=== PATIENT | female | born 1965 | race Caucasian/White ===

== ENCOUNTER → 2018-07-12 10:03 | Outpatient (CLI) | payer OTHER, SELFPAY ==
--- NOTE | 2018-07-12 | DI.RAD.S_ITS ---
PROCEDURE: XR KUB INDICATIONS: KIDNEY STONES TECHNIQUE: One view of the abdomen acquired. COMPARISON: CT abdomen and pelvis dated 07/06/18. FINDINGS: Surgical changes and devices: An intrauterine device projects over the midline lower pelvis. Bowel: Bowel gas pattern is normal. Soft tissues: There is a 10 mm calculus projecting lateral to the left side of the lumbar spine at the level of L3-4 correlating with previously seen left ureteral stone. It demonstrates no significant change in positioning when accounting for differences in imaging modality. The punctate right nephrolith is not visualized radiographically. No other suspicious abdominal calcifications. Visualized solid organ contours appear normal in size. Bones: No suspicious bony lesions. IMPRESSION: 1. The left mid ureteral stone remains unchanged in positioning. It measures approximately 10 mm craniocaudal dimension. 2. Otherwise, no acute radiographic abnormalities. Dictated by: Delgado Tracy M.D. on 07/12/2018 at 17:26 Approved by: Delgado Tracy M.D. on 07/12/2018 at 17:30
== END ==
PROVIDERS: PCP Family Medicine; Visit Provider Specialist
DX: N20.1 Calculus of ureter (principal)
CPT/HCPCS: 74018

== ENCOUNTER → 2018-07-23 11:12 | Outpatient (CLI) | payer OTHER, SELFPAY ==
--- NOTE | 2018-07-23 | DI.RAD.S_ITS ---
PROCEDURE: XR KUB INDICATIONS: Calculus of left kidney TECHNIQUE: One view of the abdomen acquired. COMPARISON: Outside Film, CT, CT KUB, 07/06/2018, 17:36. [facility], CR, XR KUB, 07/12/2018, 10:14. FINDINGS: Surgical changes and devices: Left nephroureteral stent is visible. IUD is present. Bowel: Bowel gas pattern is normal. Soft tissues: There are at least 3 small calcifications projecting over the lower pole of the left kidney ranging in size from 2 mm to 6 mm. Proximal left ureteral calcification is no longer visible.. Visualized solid organ contours appear normal in size. Bones: No suspicious bony lesions. IMPRESSION: 1. Probable left lower pole intrarenal calcifications. 2. Interval resolution of left proximal ureteral calcification. 3. Left nephroureteral stent in expected location. Dictated by: Kailee Urias M.D. on 07/23/2018 at 12:55 Approved by: Kailee Urias M.D. on 07/23/2018 at 12:57
== END ==
PROVIDERS: PCP Family Medicine; Visit Provider Specialist
DX: N20.0 Calculus of kidney (principal); Z96.0 Presence of urogenital implants
CPT/HCPCS: 74018

== ENCOUNTER → 2018-09-11 09:23 | Outpatient (CLI) | payer OTHER, SELFPAY ==
--- NOTE | 2018-09-11 | DI.RAD.S_ITS ---
PROCEDURE: XR KUB INDICATIONS: KIDNEY STONES TECHNIQUE: One view of the abdomen acquired. COMPARISON: [facility], CR, XR KUB, 07/23/2018, 11:27. FINDINGS: Surgical changes and devices: None. Bowel: Bowel gas pattern is normal. Soft tissues: Left ureteral stent is removed. Previously seen left inferior pole renal calcifications are no longer visualized. Visualized solid organ contours appear normal in size. There is an IUD in pelvis, presumably in the uterus. Bones: No suspicious bony lesions. IMPRESSION: 1. Removal of the left ureteral stent. Previously seen left inferior pole renal calcifications are no longer visualized. Dictated by: Lorene Vences M.D. on 09/11/2018 at 13:35 Approved by: Lorene Vences M.D. on 09/11/2018 at 13:54
[2018-09-11 11:31] LABS: Calcium 9.8 mg/dL (8.4-10.2); Uric Acid 5.4 mg/dL (2.5-6.2)
[2018-09-13 13:47] LABS: Parathyroid Hormone Int 58 pg/mL (14-64)
== END ==
PROVIDERS: PCP Family Medicine; Visit Provider Specialist
DX: N20.0 Calculus of kidney (principal)
CPT/HCPCS: 36415; 74018; 82310; 83970; 84550

== ENCOUNTER → 2018-10-28 13:08 | Outpatient (CLI) | payer OTHER, SELFPAY ==
--- NOTE | 2018-10-28 | DI.RAD.S_ITS ---
PROCEDURE: XR KUB INDICATIONS: kidney stones TECHNIQUE: One view of the abdomen acquired. COMPARISON: [facility], CR, XR KUB, 09/11/2018, 9:28. FINDINGS: Surgical changes and devices: An intrauterine contraceptive device is evident overlying the midline pelvis. Bowel: Bowel gas pattern is normal. No air-filled distended small bowel loops are evident demonstrating air-fluid levels. Soft tissues: No suspicious abdominal calcifications. Visualized solid organ contours appear normal in size. Bones: No suspicious bony lesions. Degenerative changes of the lower lumbar spine are present. IMPRESSION: No definite renal calculi are appreciated. Dictated by: Tee Bowie M.D. on 10/28/2018 at 12:32 Approved by: Tee Bowie M.D. on 10/28/2018 at 12:34
== END ==
PROVIDERS: PCP Family Medicine; Visit Provider Specialist
DX: N20.0 Calculus of kidney (principal); M47.816 Spondylosis without myelopathy or radiculopathy, lumbar region
CPT/HCPCS: 74018

== ENCOUNTER 2019-08-25 00:48 | Emergency (ER) | payer OTHER, SELFPAY ==
[2019-08-25 01:04] VITALS: BP 160/75; PULSE 75; RESP 18; TEMP 36.3; O2SAT 95; BMI 37.5
[2019-08-25 01:51] LABS: Add Manual Diff / Slide Review NO; Basophils Absolute Auto 100 /uL (0-100); Basophils Percent Auto 0.6 % (0-2); Eosinophils Absolute Auto 200 /uL (0-450); Eosinophils Percent Auto 2.2 % (2-4); Hematocrit 42.1 % (36-46); Hemoglobin 14.2 g/dL (12.0-16.0); Lymphocytes Absolute Auto 2100 /uL (1100-4500); Lymphocytes Percent Auto 23.5 % (25-40); Mean Corpuscular HGB Conc 33.7 % (30-36); Mean Corpuscular Hemoglobin 28.1 PG (26-34); Mean Corpuscular Volume 83.2 fL (80-100); Monocytes Absolute Auto 800 /uL (0-900); Monocytes Percent Auto 9.2 % (3-14); Neutrophils Absolute Auto 5900 /uL (1500-7000); Neutrophils Percent Auto 64.5 % (50-75); Platelet Count 272 X10^3/uL (150-400); Red Blood Cell Count 5.06 X10^6/uL (4.0-5.2); Red Cell Distribution Width 13.6 % (11.6-14.8); White Blood Cell Count 9.1 X10^3/uL (4.5-11.0)
--- NOTE | 2019-08-25 01:52 | ED.FEMALEGU ---
HPI - Female Genitourinary General Chief complaint: Urogenital-Female Stated complaint: right side kidney pain Time Seen by Provider: 08/25/19 00:50 Source: patient Mode of arrival: Ambulatory Limitations: no limitations History of Present Illness HPI Narrative: 54F non smoker with history of kidney stones presents with her and a chief complaint of a relatively sudden onset right flank pain that started a few hours prior to arrival. She has taken 600 mg of ibuprofen with minimal relief. She states that wraps around her flank small bit him overall her symptoms are very reminiscent of prior kidney stones. She denies any fever or chills. She has no nausea or vomiting. She denies dysuria, frequency or urgency. She states that her pain is largely could consistent but has episodes of unprovoked worsening Onset (ago): hour(s) Female Urogenital Radiation: R Flank Severity: severe Quality: Aching and Sharp Duration: constant Relieving factors: none Exacerbating factors: other (Laying flat) Urinary symptoms: Flank Pain Patient : No Related Data Home Medications Medication Instructions Recorded Confirmed bupropion HCl [Wellbutrin XL] 150 mg PO BID #0 09/16/16 cholecalciferol (vitamin D3) 5,000 u PO QDAY #0 09/16/16 [Vitamin D3] citalopram [Celexa] 40 mg PO QDAY #0 09/16/16 hydrocodone-acetaminophen 1 - 2 tab PO Q6HP PRN #0 09/16/16 melatonin 3 mg PO HS #0 09/16/16 Previous Rx's Medication Instructions Recorded hydrocodone-acetaminophen 1 tab PO Q4-6H PRN #20 tab 08/25/19 ketorolac 10 mg PO Q6H PRN #14 tab 08/25/19 ondansetron 4 mg PO TID-QID PRN #10 tab 08/25/19 tamsulosin [Flomax] 0.4 mg PO DAILY #10 cap 08/25/19 Allergies Allergy/AdvReac Type Severity Reaction Status Date / Time No Known Allergies Allergy Uncoded 06/28/17 12:45 Review of Systems Review of Systems ROS Unobtainable: All systems reviewed & are unremarkable except as noted in HPI and below Constitutional Constitutional: Denies chills, Denies fatigue, Denies fever(s), Denies frequent falls, Denies lethargy and Denies weakness Eyes Eyes: Denies change in vision, Denies eye discharge, Denies irritation and Denies loss of vision ENT Ears, Nose, Mouth, and Throat: Denies change in voice, Denies dizziness, Denies neck pain, Denies sore throat and Denies throat swelling Cardiovascular Cardiovascular: Denies chest pain, Denies irregular heart rhythm, Denies lightheadedness, Denies palpitations, Denies dyspnea, Denies dyspnea on exertion and Denies orthopnea Respiratory Respiratory: Denies cough, Denies dyspnea, Denies dyspnea on exertion and Denies wheezing Gastrointestinal Gastrointestinal: Denies abdominal pain, Denies change in bowel habits, Denies diarrhea, Denies nausea and Denies vomiting Genitourinary Genitourinary: Denies hematuria and Denies dysuria Genitourinary: Denies hematuria and Denies dysuria Musculoskeletal Musculoskeletal: Denies neck pain and Denies numbness Integumentary/Breasts Skin/Breast: Denies pruritus, Denies erythema, Denies rash and Denies wounds Neurologic Neurologic: Denies behavioral changes, Denies confusion, Denies dizziness, Denies frequent falls, Denies loss of vision, Denies numbness and Denies weakness Psychiatric Psychiatric: Denies anxiety, Denies behavioral changes, Denies confusion, Denies depression, Denies homicidal ideation and Denies suicidal ideation Endocrine Endocrine: Denies fatigue, Denies flushing and Denies palpitations Hematologic/Lymphatic Hematologic/Lymphatic: Denies easy bruising Allergic/Immunologic Allergic/Immunologic: Denies urticaria, Denies throat swelling and Denies wheezing Patient History alcohol intake frequency: 0-2 drinks per day Substance Use Type: does not use Exam Narrative Exam Narrative: GENERAL: [54] year old patient appears stated age. Well-nourished, well-developed patient, in mild distress. HEAD: Atraumatic. Normocephalic. EYES: Pupils equal round and reactive. Extraocular motions intact. No scleral icterus. No injection or drainage. ENT: Nose without bleeding, purulent drainage. Throat without erythema, tonsillar hypertrophy or exudate. Airway patent. NECK: Trachea midline. Non tender CARDIOVASCULAR: Regular rate and rhythm without murmurs, gallops, or rubs. RESPIRATORY: Clear to auscultation. Breath sounds equal bilaterally. No wheezes, rales, or rhonchi. GASTROINTESTINAL: Abdomen soft, non-tender, nondistended. EXTREMITIES: No edema or joint tenderness. BACK: Nontender without deformity or crepitance. No flank tenderness. NEURO: AOx3. SKIN: No rash or erythema of visible areas Initial Vital Signs Initial Vital Signs: Vital Signs Temperature 97.3 F L 08/25/19 01:04 Pulse Rate 75 08/25/19 01:04 Respiratory Rate 18 08/25/19 01:04 Blood Pressure 160/75 H 08/25/19 01:04 Pulse Oximetry 95 08/25/19 01:04 Course Course Course Narrative: Minimal improvement with toradol/lidocaine drip. Dilaudid ordered. given lack of lab abnormalities, and no sign of infection, along with improvement of symptoms with the above no imaging ordered as it is though to be unlikely to change the outcome. Orders Ordered: ED Orders 08/25/19 01:05 Urinalysis and Microscopic Stat 08/25/19 01:40 Complete Blood Count AUTO DIFF Stat Comprehensive Metabolic Panel Stat Discontinued Medications Hydrocodone Bitart/Acetaminophen (Vicodin 5/325 Prepack) 1 bottle MISC SEEINSTR ONE Stop: 08/25/19 03:48 Hydromorphone HCl (Dilaudid) 1 mg IV NOW ONE Stop: 08/25/19 02:17 Last Admin: 08/25/19 02:28 Dose: 1 mg Documented by: PHYLLIS Sodium Chloride (Normal Saline 0.9%) 1,000 mls @ 1,000 mls/hr IV BOLUS ONE Stop: 08/25/19 02:33 Last Infusion: 08/25/19 03:47 Dose: 0 mls/hr Documented by: Admin: 08/25/19 01:56 Dose: 1,000 mls/hr Documented by: PHYLLIS Lidocaine HCl 8.2 ml/ Sodium (Chloride) 58.2 mls @ 349.2 mls/hr IV NOW ONE Stop: 08/25/19 01:35 Last Infusion: 08/25/19 02:28 Dose: 0 mls/hr Documented by: Admin: 08/25/19 01:57 Dose: 349.2 mls/hr Documented by: PHYLLIS Ketorolac Tromethamine (Toradol) 15 mg IV NOW ONE Stop: 08/25/19 01:35 Last Admin: 08/25/19 01:56 Dose: 15 mg Documented by: PHYLLIS Vital Signs Vital signs: Vital Signs - 8 hr 08/25/19 01:04 08/25/19 03:50 Temperature 97.3 F L Pulse Rate 75 61 Respiratory Rate 18 15 Blood Pressure 160/75 H Blood Pressure [Left Arm] 160/75 H Pulse Oximetry 95 94 MDM - Female Genitourinary Lab Data Result diagrams: 08/25/19 01:40 08/25/19 01:40 Labs: Lab Results 08/25/19 08/25/19 08/25/19 Range/Units 01:05 01:40 01:40 WBC 9.1 (4.5-11.0) X10^3/uL RBC 5.06 (4.0-5.2) X10^6/uL Hgb 14.2 (12.0-16.0) g/dL Hct 42.1 (36-46) % MCV 83.2 (80-100) fL MCH 28.1 (26-34) PG MCHC 33.7 (30-36) % RDW 13.6 (11.6-14.8) % Plt Count 272 (150-400) X10^3/uL Neut % (Auto) 64.5 (50-75) % Lymph % (Auto) 23.5 L (25-40) % [place] % (Auto) 9.2 (3-14) % Eos % (Auto) 2.2 (2-4) % Baso % (Auto) 0.6 (0-2) % Neut # (Auto) 5900 (8435-7204) /uL Lymph # (Auto) 2100 (6389-7647) /uL [place] # (Auto) 800 (0-900) /uL Eos # (Auto) 200 (0-450) /uL Baso # (Auto) 100 (0-100) /uL Sodium 138 (137-145) mmol/L Potassium 3.6 (3.4-5.1) mmol/L Chloride 104 (98-107) mmol/L Carbon Dioxide 26 (22-32) mmol/L BUN 21 H (7-17) mg/dL Creatinine 0.87 (0.52-1.04) mg/dL Estimated GFR > 60.0 (>60) mL/min BUN/Creatinine Ratio 24.1 H (6-22) Glucose 123 H (70-100) mg/dL Calcium 10.2 (8.4-10.2) mg/dL Total Bilirubin 0.4 (0.2-1.3) mg/dL AST 44 H (14-36) IU/L ALT 34 (<35) IU/L Alkaline Phosphatase 59 (38-126) U/L Total Protein 8.0 (6.3-8.2) g/dL Albumin 4.4 (3.5-5.0) g/dL Globulin 3.6 (1.7-4.1) g/dL Albumin/Globulin Ratio 1.2 (1.0-2.8) Urine Color Yellow Urine Appearance Clear Urine pH 5.0 (4.5-8.0) Ur Specific [place] >=1.030 H (1.000-1.035) Urine Protein 1+ H (Negative) Urine Glucose (UA) Negative (Negative) g/dL Urine Ketones Negative (NEGATIVE) Urine Occult Blood 3+ H (Negative) Urine Nitrate Negative (Negative) Urine Bilirubin Negative (NEGATIVE) Urine Urobilinogen 0.2 (0.2) E.U./dL Ur Leukocyte Esterase Negative (NEGATIVE) Urine RBC 1-5/hpf (0-5/HPF) Urine WBC 1-5/hpf (0-5/HPF) Ur Squamous Epith Cells 1-5 /hpf (0-5/HPF) Calcium Oxalate Crystal Occasional H Urine Bacteria Few (2-10) H (None) Ur Culture Indicated? Cult not indicated Micro UA Comment * Discharge Plan Departure Patient Disposition: Home Clinical Impression: Kidney stone Instructions: DI for Kidney Stones Activity Restrictions/Additional Instructions: *You have been diagnosed with [right flank pain from kidney stone] *What to do: *Take medications as directed *Follow up with your urologist in 2-3 days, call for an appointment. Let them know you were seen in the Emergency Department and that we ask that you be seen in follow up *Return to ER if you should have any new, worsening or concerning symptoms, such as [ ] Prescriptions: New hydrocodone-acetaminophen 5-325 mg tablet 1 tab PO Q4-6H PRN (Reason: pain) Qty: 20 RF: 0 ketorolac 10 mg tablet 10 mg PO Q6H PRN (Reason: pain) Qty: 14 RF: 0 tamsulosin [Flomax] 0.4 mg capsule 0.4 mg PO DAILY Qty: 10 RF: 0 ondansetron 4 mg tablet,disintegrating 4 mg PO TID-QID PRN (Reason: nausea and vomiting) Qty: 10 RF: 0 No Action citalopram [Celexa] 40 MG tablet 40 mg PO QDAY Qty: 0 RF: 0 hydrocodone-acetaminophen 5 MG/325 MG tablet 1 - 2 tab PO Q6HP PRNQty: 0 RF: 0 bupropion HCl [Wellbutrin XL] 150 MG tablet extended release 24 hr 150 mg PO BID Qty: 0 RF: 0 melatonin 3 MG tablet 3 mg PO HS Qty: 0 RF: 0 cholecalciferol (vitamin D3) [Vitamin D3] 1,000 UNIT tablet 5,000 u PO QDAY Qty: 0 RF: 0 Referrals: Johnathan Purdy MD [Physician] - Heriberto Grady DO [Primary Care Provider] -
[2019-08-25 01:55] LABS: Appearance Urine UA CLEAR; Bilirubin Urine UA NEGATIVE (NEGATIVE); Color Urine UA YELLOW; Glucose Urine UA NEGATIVE (Negative); Ketones Urine UA NEGATIVE (NEGATIVE); Leukocyte Esterase Urine UA NEGATIVE (NEGATIVE); Nitrite Urine UA NEGATIVE (Negative); Occult Blood Urine UA 3+ (Negative); Protein Urine UA 1+ (Negative); Specific Gravity Urine UA >=1.030 (1.000-1.035); Urobilinogen Urine UA 0.2 E.U./dL (0.2)
[2019-08-25] MEDS: SODIUM CHLORIDE 0.9% 1,000 ML 1000 ML IV (01:56)
[2019-08-25] MEDS: KETOROLAC 60 MG/2 ML VIAL 15 MG IV (01:56)
[2019-08-25] MEDS: LIDOCAINE 2% IV (01:57)
[2019-08-25] MEDS: SODIUM CHLORIDE 0.9% IV (01:57)
[2019-08-25 02:09] LABS: Alanine Aminotransferase 34 IU/L (<35); Albumin 4.4 g/dL (3.5-5.0); Albumin Globulin Ratio 1.2 (1.0-2.8); Alkaline Phosphatase 59 U/L (38-126); Aspartate Aminotransferase 44 IU/L (14-36); BUN Creatinine Ratio 24.1 (6-22); Bilirubin Total 0.4 mg/dL (0.2-1.3); Blood Urea Nitrogen 21 mg/dL (7-17); Calcium 10.2 mg/dL (8.4-10.2); Carbon Dioxide 26 mmol/L (22-32); Chloride 104 mmol/L (98-107); Estimated Glomerular Filt Rate > 60.0 mL/min (>60); Globulin 3.6 g/dL (1.7-4.1); Glucose 123 mg/dL (70-100); HEMOLYSIS < 15 (0-50); Potassium 3.6 mmol/L (3.4-5.1); Sodium 138 mmol/L (137-145)
[2019-08-25 02:10] LABS: Bacteria Urine Few (2-10); Calcium Oxalate Crystals Urine Occasional; RBC Urine 1-5/HPF (0-5/HPF); Squamous Epithelial Cell Urine 1-5 /HPF (0-5/HPF); WBC Urine 1-5/HPF (0-5/HPF)
[2019-08-25 02:12] LABS: Culture Indicated Urine Cult Not Indicated
[2019-08-25] MEDS: HYDROMORPHONE 1 MG INJ IV (02:28)
[2019-08-25 03:50] VITALS: BP 160/75; PULSE 61; RESP 15; O2SAT 94
[2019-08-25] MEDS: HYDROCODONE/ACET 5/325 PREPACK 1 BOTTLE MISC (03:57)
== END 2019-08-25 04:06 | disposition home or self-care (01) ==
PROVIDERS: Emergency Provider Emergency Medicine; PCP Family Medicine
DX: N20.0 Calculus of kidney (principal); Z87.442 Personal history of urinary calculi
CPT/HCPCS: 36415; 80053; 81001; 85025; 96365; 96375; 99284; J1170; J1885

== ENCOUNTER → 2019-08-26 12:29 | Outpatient (CLI) | payer OTHER, SELFPAY ==
--- NOTE | 2019-08-26 | DI.RAD.S_ITS ---
PROCEDURE: XR KUB INDICATIONS: Kidney stones TECHNIQUE: One view of the abdomen acquired. COMPARISON: [facility], CR, XR KUB, 10/28/2018, 13:13. FINDINGS: Surgical changes and devices: Intrauterine device projects over the mid pelvis. Bowel: Bowel gas pattern is normal. Soft tissues: No suspicious abdominal calcifications. Visualized solid organ contours appear normal in size. Bones: No suspicious bony lesions. IMPRESSION: No renal stones identified by plain film radiograph. Dictated by: Anjali Agosto MD, PhD on 08/26/2019 at 16:50 Approved by: Anjali Agosto MD, PhD on 08/26/2019 at 16:50
== END ==
PROVIDERS: PCP Family Medicine; Referring Provider Specialist; Visit Provider Specialist
DX: N20.0 Calculus of kidney (principal)
CPT/HCPCS: 74018

== ENCOUNTER → 2020-02-29 11:37 | Outpatient (CLI) | payer OTHER, SELFPAY ==
--- NOTE | 2020-02-29 12:11 | DI.RAD.S_ITS ---
PROCEDURE: XR KUB INDICATIONS: L flank pain TECHNIQUE: One view of the abdomen acquired. COMPARISON: Outside Film, CT, CT KUB, 07/06/2018, 17:36. Merged With [facility], CR, XR KUB, 08/26/2019, 11:40. Merged With [facility], CR, XR KUB, 10/28/2018, 13:13. FINDINGS: Surgical changes and devices: IUD in the pelvis. Bowel: Bowel gas pattern is normal. Soft tissues: No suspicious abdominal calcifications. Visualized solid organ contours appear normal in size. Bones: No suspicious bony lesions. IMPRESSION: No kidney stones identified by plain film. If clinically indicated consider CT KUB for further evaluation. Dictated by: Quinn Rhoades M.D. on 02/29/2020 at 11:41 Approved by: Quinn Rhoades M.D. on 02/29/2020 at 11:43
[2020-02-29 13:17] LABS: Add Manual Diff / Slide Review NO; Basophils Absolute Auto 100 /uL (0-100); Basophils Percent Auto 0.7 % (0-2); Eosinophils Absolute Auto 100 /uL (0-450); Hematocrit 44.6 % (36-46); Hemoglobin 15.1 g/dL (12.0-16.0); Lymphocytes Absolute Auto 2600 /uL (1100-4500); Lymphocytes Percent Auto 35.7 % (25-40); Mean Corpuscular HGB Conc 33.9 % (30-36); Mean Corpuscular Hemoglobin 28.3 PG (26-34); Mean Corpuscular Volume 83.5 fL (80-100); Monocytes Absolute Auto 600 /uL (0-900); Monocytes Percent Auto 8.3 % (3-14); Neutrophils Absolute Auto 3900 /uL (1500-7000); Neutrophils Percent Auto 53.3 % (50-75); Platelet Count 282 X10^3/uL (150-400); Red Blood Cell Count 5.34 X10^6/uL (4.0-5.2); Red Cell Distribution Width 13.3 % (11.6-14.8); White Blood Cell Count 7.3 X10^3/uL (4.5-11.0)
[2020-02-29 13:28] LABS: Alanine Aminotransferase 39 IU/L (<35); Albumin 4.6 g/dL (3.5-5.0); Albumin Globulin Ratio 1.2 (1.0-2.8); Alkaline Phosphatase 78 U/L (38-126); Aspartate Aminotransferase 49 IU/L (14-36); BUN Creatinine Ratio 18.1 (6-22); Bilirubin Total 0.8 mg/dL (0.2-1.3); Blood Urea Nitrogen 13 mg/dL (7-17); Calcium 9.5 mg/dL (8.4-10.2); Carbon Dioxide 28 mmol/L (22-32); Chloride 103 mmol/L (98-107); Estimated Glomerular Filt Rate > 60.0 mL/min (>60); Globulin 3.9 g/dL (1.7-4.1); Glucose 98 mg/dL (70-100); HEMOLYSIS 30 (0-50); Potassium 4.1 mmol/L (3.4-5.1); Sodium 140 mmol/L (137-145); Total Protein 8.5 g/dL (6.3-8.2)
== END ==
PROVIDERS: PCP Family Medicine; Referring Provider Nurse Practitioner; Visit Provider Nurse Practitioner
DX: R30.0 Dysuria (principal); R10.9 Unspecified abdominal pain
CPT/HCPCS: 36415; 74018; 80053; 85025; 87086

== ENCOUNTER → 2022-05-18 12:45 | Outpatient (CLI) | payer OTHER, SELFPAY ==
--- NOTE | 2022-05-18 13:37 | DI.MRI.S_ITS ---
PROCEDURE: MRFOOT LT WO CON INDICATIONS: Crushing injury of left foot, initial encounter TECHNIQUE: Noncontrast sagittal T1 spin echo and T2 fast spin echo with fat saturation, long-axis T1 spin echo and T2 fast spin echo with fat saturation, short-axis T1 spin echo and T2 fast spin echo with fat saturation through the forefoot. COMPARISON: [facility], CR, XR FOOT 3 VIEWS WEIGHT BEARING LEFT, 03/23/2022, 10:10. [facility], CR, XR FOOT 3 VIEWS WEIGHT BEARING LEFT, 05/11/2022, 9:28. FINDINGS: Image quality: Excellent. Bones and joints: No bone marrow contusions or metatarsal stress fractures. Osteoarthritic changes are noted involving midfoot and forefoot joints most notably at 1st MTP joint with joint space narrowing, subchondral sclerosis and cyst formation. Osteoarthritic changes also noted involving articulation between 1st metatarsal head and sesamoids. No suspicious bony lesions. Soft tissues: The visualized plantar foot muscles demonstrate normal signal and bulk. Visualized flexor and extensor tendons appear intact, without tenosynovitis. The distal insertions of the peroneus brevis and longus tendons appear intact. The principal Lisfranc ligament appears intact. No soft tissue ganglion cysts or bursal fluid collections. Sagittal images demonstrate no evidence for plantar plate tears. IMPRESSION: 1. Midfoot and forefoot joint osteoarthritis. No marrow edema. No fracture or dislocation. No suspicious bony lesions. 2. Extensor and flexor tendons are intact. Lisfranc ligament and joint is intact. Dictated by: Brian Baron M.D. on 05/18/2022 at 15:36 Approved by: Brian Baron M.D. on 05/18/2022 at 15:41
== END ==
PROVIDERS: PCP Family Medicine; Referring Provider Orthopaedic Surgery Foot and Ankle Surgery; Visit Provider Orthopaedic Surgery Foot and Ankle Surgery
DX: S97.82XA Crushing injury of left foot, initial encounter (principal); M19.072 Primary osteoarthritis, left ankle and foot; X58.XXXA Exposure to other specified factors, initial encounter
CPT/HCPCS: 73718

== ENCOUNTER 2024-04-19 10:08 | Emergency (ER) | payer OTHER, SELFPAY ==
[2024-04-19 10:09] VITALS: BP 128/62; PULSE 88; RESP 24; TEMP 36.6; O2SAT 99; BMI 35.5
[2024-04-19 10:14] VITALS: BP 128/62; PULSE 75; O2SAT 99
--- NOTE | 2024-04-19 10:15 | EKG_ITS ---
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
--- NOTE | 2024-04-19 10:16 | DI.RAD.S_ITS ---
PROCEDURE: XR CHEST 1V INDICATIONS: chest pain TECHNIQUE: One view of the chest was acquired. COMPARISON: None. FINDINGS: Surgical changes and devices: None. Lungs and pleura: Lungs are clear. No pleural effusions or pneumothorax. Mediastinum: Mediastinal contours appear normal. Heart size is normal. Bones and chest wall: No suspicious bony lesions. Overlying soft tissues appear unremarkable. IMPRESSION: No acute pulmonary process. Dictated by: Reta Thao M.D. on 04/19/2024 at 11:28 Approved by: Reta Thao M.D. on 04/19/2024 at 11:30
--- NOTE | 2024-04-19 10:17 | ED.CHESTPAIN ---
HPI - Chest Pain General Chief Complaint: Chest Pain Stated Complaint: Faint, Heavy chest , both arms hurt Time Seen by Provider: 04/19/24 10:17 History of Present Illness HPI narrative: 58-year-old female with past medical history of anxiety depression presents to the emergency department from home for evaluation of chest pressure as well as diffuse myalgias, states it has been ongoing persistent for the past week, states that approximately 1 month ago something similar like this happened was at [facility] states that at that time she was admitted had a normal stress test echo and was discharged home. She states that all these symptoms started approximately 1 month ago when she stopped taking her citalopram by herself, states that 1 week ago she started fluoxetine. She denies any trauma or falls, denies any difficulty breathing no fever chills nausea vomiting abdominal pain or any other GI/ symptoms at this time. She denies any known sick contacts no recent travel. Related Data Home Medications Medication Instructions Recorded Confirmed citalopram 40 mg tablet (Celexa) 40 mg PO QDAY ##0 09/16/16 02/29/20 hydrochlorothiazide 25 mg tablet 25 mg PO DAILY 02/29/20 02/29/20 potassium citrate PO 02/29/20 02/29/20 Previous Rx's Medication Instructions Recorded cyclobenzaprine 10 mg tablet 10 mg PO BEDTIME PRN muscle spasm 04/19/24 5 days #5 tabs Allergies Allergy/AdvReac Type Severity Reaction Status Date / Time No Known Drug Allergies Allergy Verified 04/19/24 10:17 Review of Systems Review of Systems Narrative: General: Denies fever, chills, weight loss HEENT: Denies headache, eye drainage, eye irritation, head trauma, sore throat, voice change Cardiovascular: Positive chest pain, denies palpitations, shortness of breath, tachycardia Respiratory: Denies any shortness of breath, cough, wheeze, stridor GI/: Denies any abdominal pain, nausea, vomiting, diarrhea, bright red blood per rectum, melanotic stools, urinary frequency, urinary retention, dysuria, hematuria MSK: Positive myalgias, Denies any joint pain, swelling Skin: Denies any rashes, lesions, discoloration Neuro: Denies any headache, lightheadedness, dizziness, fainting, weakness Psych: Denies SI/HI Patient History Medical History Renal calculi Social History Smoking Status: Never smoker Smoking Status: Never smoker alcohol intake frequency: 0-2 drinks per day Exam Narrative Exam Narrative: General: Cooperative, comfortable, well-developed, not in acute distress HEENT: Normocephalic, atraumatic, PERRLA, normal sclera, eyelids normal, Neck: Active full range of motion, atraumatic Chest: Normal to inspection, negative crepitus, no overlying erythema ecchymosis Respiratory: Normal respiratory effort, not in acute respiratory distress, clear to auscultation bilaterally negative cough, wheeze, tachypnea, rhonchi, rales Cardiology: Regular rate rhythm negative gallop, murmur, rubs GI/: Normal to inspection, soft, nonrigid, no tenderness to palpation, exam deferred MSK: Full range of active range of motion of all 4 extremities, atraumatic, bilateral upper lower extremities neurovascularly intact no tenderness to palpation of any bony prominences Skin: No rashes lesions noted Neuro: Alert awake oriented x3, moves all 4 extremities spontaneously, cranial nerves intact, able to answer all questions appropriately follows commands appropriately Psych: Cooperative, negative suicidal or homicidal ideations Initial Vital Signs Initial Vital Signs: Vital Signs Temperature 97.8 F 04/19/24 10:09 Pulse Rate 88 04/19/24 10:09 Respiratory Rate 24 04/19/24 10:09 Blood Pressure 128/62 04/19/24 10:09 Pulse Oximetry 99 04/19/24 10:09 Oxygen Delivery Method Room Air 04/19/24 10:09 Course Orders Ordered: ED Orders 04/19/24 10:16 XR chest 1V Stat EKG-12 Lead Stat 04/19/24 10:29 Covid-19 + FLU A/B + RSV - PCR Stat 04/19/24 10:35 Complete Blood Count AUTO DIFF Stat Comprehensive Metabolic Panel Stat Lipase Stat Magnesium Stat NT-proBNP (BNP-Adult 18+) Stat PTT Partial Thromboplastin Roberto Carlos Stat Prothrombin Time INR Stat Troponin & CK Cardiac Panel Stat Discontinued Medications Aspirin (Aspirin 81 Mg Chew Tab) 324 mg PO NOW ONE Stop: 04/19/24 10:17 Last Admin: 04/19/24 11:06 Dose: 243 mg Documented By: RB Cyclobenzaprine HCl (Cyclobenzaprine 10 Mg Tablet) 10 mg PO NOW ONE Stop: 04/19/24 11:21 Last Admin: 04/19/24 11:30 Dose: 10 mg Documented By: REBECCA Ketorolac Tromethamine (Ketorolac 30 Mg/Ml Vial) 15 mg IV NOW ONE Stop: 04/19/24 11:21 Last Admin: 04/19/24 11:30 Dose: 15 mg Documented By: REBECCA Vital Signs Vital signs: Vital Signs - 8 hr 04/19/24 10:09 04/19/24 10:14 04/19/24 10:14 Temperature 97.8 F Pulse Rate 88 75 Respiratory Rate 24 Blood Pressure 128/62 128/62 Pulse Oximetry 99 99 Oxygen Delivery Method Room Air 04/19/24 10:30 04/19/24 10:30 04/19/24 11:00 Temperature Pulse Rate 85 Respiratory Rate 23 Blood Pressure 127/69 123/56 L Pulse Oximetry 98 Oxygen Delivery Method 04/19/24 11:00 Temperature Pulse Rate 87 Respiratory Rate 19 Blood Pressure Pulse Oximetry 97 Oxygen Delivery Method MDM - Chest Pain Differential Diagnosis Differential diagnosis: Likely st elevation myocardial infarction, costochondritis, chest pain and other (Electrolyte abnormality, pneumonia) Lab Data 04/19/24 10:35 04/19/24 10:35 Labs: Lab Results 04/19/24 04/19/24 Range/Units 10:29 10:35 WBC 12.3 H (4.5-11.0) X10^3/uL RBC 4.77 (4.0-5.2) X10^6/uL Hgb 13.6 (12.0-16.0) g/dL Hct 40.5 (36-46) % MCV 85.0 (80-100) fL MCH 28.6 (26-34) PG MCHC 33.7 (30-36) % RDW 13.2 (11.6-14.8) % Plt Count 282 (150-400) X10^3/uL Neut % (Auto) 71.4 (50-75) % Lymph % (Auto) 19.4 L (25-40) % [place] % (Auto) 7.6 (3-14) % Eos % (Auto) 0.9 L (2-4) % Baso % (Auto) 0.7 (0-2) % Neut # (Auto) 8800 H (7774-1716) /uL Lymph # (Auto) 2400 (4857-3456) /uL [place] # (Auto) 900 (0-900) /uL Eos # (Auto) 100 (0-450) /uL Baso # (Auto) 100 (0-100) /uL PT 12.3 (9.4-12.5) SECONDS INR 1.1 (0.9-1.3) APTT 33 (25.1-36.5) SECONDS Sodium 142 (137-145) mmol/L Potassium 3.4 (3.4-5.1) mmol/L Chloride 105 (98-107) mmol/L Carbon Dioxide 29 (22-32) mmol/L BUN 19 H (7-17) mg/dL Creatinine 0.85 (0.52-1.04) mg/dL Estimated GFR > 60 (>60) mL/min BUN/Creatinine Ratio 22.4 H (6-22) Glucose 102 H (70-100) mg/dL Calcium 9.7 (8.4-10.2) mg/dL Magnesium 1.9 (1.6-2.3) mg/dL Total Bilirubin 0.7 (0.2-1.3) mg/dL AST 32 (14-36) IU/L ALT 27 (<35) IU/L Alkaline Phosphatase 66 (38-126) U/L Total Creatine Kinase 75 (30-135) U/L Troponin I < 0.012 (0.01-0.034) ng/mL NT-Pro-B Natriuret Pep 26 (<125) pg/mL Total Protein 7.7 (6.3-8.2) g/dL Albumin 4.4 (3.5-5.0) g/dL Globulin 3.3 (1.7-4.1) g/dL Albumin/Globulin Ratio 1.3 (1.0-2.8) Lipase 108 (23-300) U/L SARS-CoV-2 (PCR) Negative (Negative) Influenza A (RT-PCR) Flu a negative (NEGATIVE) Influenza B (RT-PCR) Flu b negative (NEGATIVE) RSV (PCR) Negative (Negative) Imaging Data Chest x-ray: Radiologist's Impression: [address] [address] XRay Report Signed Patient: Robert Ortiz MR#: [id number] : 1965 Acct:[id number] Age/Sex: 58 / F Date of Service: 04/19/24 Loc: ED Accession Number: [id number] Procedure: XR chest 1V Ordering Provider: Indra Bui D.O. PROCEDURE: XR CHEST 1V INDICATIONS: chest pain TECHNIQUE: One view of the chest was acquired. COMPARISON: None. FINDINGS: Surgical changes and devices: None. Lungs and pleura: Lungs are clear. No pleural effusions or pneumothorax. Mediastinum: Mediastinal contours appear normal. Heart size is normal. Bones and chest wall: No suspicious bony lesions. Overlying soft tissues appear unremarkable. IMPRESSION: No acute pulmonary process. ECG Data Interpretation: EKG interpreted ED physician sinus 75 beats per minute QTC 419, normal axis, nonspecific ST changes, no STEMI MDM Narrative Medical decision making narrative: 58-year-old female presenting for chest pressure and diffuse myalgias ongoing persistent for the past week had similar symptoms 1 month ago, states that she went to [facility] was admitted had normal stress test echo, states that all these symptoms started when she took herself off her citalopram, states that she follow up with the primary care doctor about a week ago right before the symptoms started and was changed on fluoxetine. He has been compliant with thinning medications. Patient lab work imaging EKG performed here in the emergency department. EKG nonischemic in nature, patient troponin negative lab work showed mild leukocytosis of 12.3 otherwise unremarkable. Heart score 2. Review of records does show that patient was seen on 03/19/[address] [facility] discharge the following day had EKG chest x-ray troponin and stress test performed which were negative. She was discharged home on a baby aspirin instructed follow up with cardiology for an outpatient echo. 1122: Patient re-evaluated stating that she is still having diffuse myalgias worse to her upper extremities, patient with a normal CK value, she stating that she has not having any chest pain or pressure at this time she is complaining mostly of her diffuse myalgias. Will order Toradol as well as Flexeril for symptomatic relief. I informed the patient that we are still awaiting imaging results for her chest x-ray however the remainder of her lab work and workup has been unremarkable. 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 States that they talked to primary care doctor today here in the emergency department and they are now switching her back to citalopram and take care off of fluoxetine. She has already had a stress test performed in the past 30 days, troponin negative EKG nonischemic heart score 2 already has an outpatient appointment for echocardiogram, she was given strict return precautions she verbalized understanding of this and agrees to being discharged home with outpatient follow up Discharge Plan Departure Patient Disposition: Home Clinical Impression: Chest pain Activity Restrictions/Additional Instructions: Please follow-up with primary care, cardiology Please read the discharge instructions sheet carefully and bring all papers to all doctor follow-up visits, as it may contain information that your doctor may want to see. Disease processes change and evolve, if your symptoms worsen or if you develop any new symptoms that are concerning to you please return for evaluation. Your evaluation today does not show any evidence of any life-threatening/serious illnesses requiring admission to the hospital or surgery. Please follow-up with your doctor for re-evaluation in approximately 1 day. Seek immediate medical attention for any worrisome symptoms. *If you do not have a primary care provider please contact the [facility] Resource line at [phone]. They will ask some questions about your medical history and help get you set up with a doctor in the community. Prescriptions: New cyclobenzaprine 10 mg tablet 10 mg PO BEDTIME PRN (Reason: muscle spasm) 5 Days Qty: 5 0RF No Action hydrochlorothiazide 25 mg tablet 25 mg PO DAILY potassium citrate PO citalopram [Celexa] 40 MG tablet 40 mg PO QDAY Qty: 0 Referrals: Heriberto Grady DO [Primary Care Provider] - Stand Alone Forms: Patient Portal/API/Survey
[2024-04-19 10:30] VITALS: BP 127/69; PULSE 85; RESP 23; O2SAT 98
[2024-04-19 10:44] LABS: Add Manual Diff / Slide Review NO; Basophils Absolute Auto 100 /uL (0-100); Basophils Percent Auto 0.7 % (0-2); Eosinophils Absolute Auto 100 /uL (0-450); Eosinophils Percent Auto 0.9 % (2-4); Hematocrit 40.5 % (36-46); Hemoglobin 13.6 g/dL (12.0-16.0); Lymphocytes Absolute Auto 2400 /uL (1100-4500); Lymphocytes Percent Auto 19.4 % (25-40); Mean Corpuscular HGB Conc 33.7 % (30-36); Mean Corpuscular Hemoglobin 28.6 PG (26-34); Monocytes Absolute Auto 900 /uL (0-900); Monocytes Percent Auto 7.6 % (3-14); Neutrophils Absolute Auto 8800 /uL (1500-7000); Neutrophils Percent Auto 71.4 % (50-75); Platelet Count 282 X10^3/uL (150-400); Red Blood Cell Count 4.77 X10^6/uL (4.0-5.2); Red Cell Distribution Width 13.2 % (11.6-14.8); White Blood Cell Count 12.3 X10^3/uL (4.5-11.0)
[2024-04-19 10:51] LABS: INR 1.1 (0.9-1.3); Prothrombin Time 12.3 SECONDS (9.4-12.5)
[2024-04-19 10:53] LABS: PTT Partial Thromboplastin Tim 33 SECONDS (25.1-36.5)
[2024-04-19 10:55] LABS: Alanine Aminotransferase 27 IU/L (<35); Albumin 4.4 g/dL (3.5-5.0); Albumin Globulin Ratio 1.3 (1.0-2.8); Alkaline Phosphatase 66 U/L (38-126); Aspartate Aminotransferase 32 IU/L (14-36); BUN Creatinine Ratio 22.4 (6-22); Bilirubin Total 0.7 mg/dL (0.2-1.3); Blood Urea Nitrogen 19 mg/dL (7-17); Calcium 9.7 mg/dL (8.4-10.2); Carbon Dioxide 29 mmol/L (22-32); Chloride 105 mmol/L (98-107); Creatine Kinase 75 U/L (30-135); Estimated Glomerular Filt Rate > 60 mL/min (>60); Globulin 3.3 g/dL (1.7-4.1); Glucose 102 mg/dL (70-100); HEMOLYSIS < 15 (0-50); Lipase 108 U/L (23-300); Magnesium 1.9 mg/dL (1.6-2.3); Potassium 3.4 mmol/L (3.4-5.1); Sodium 142 mmol/L (137-145); Total Protein 7.7 g/dL (6.3-8.2)
[2024-04-19 11:00] VITALS: BP 123/56; PULSE 87; RESP 19; O2SAT 97
[2024-04-19] MEDS: ASPIRIN 81 MG CHEW TAB 324 MG PO (11:06)
[2024-04-19 11:07] LABS: NT-proBNP (BNP-Adult 18+) 26 pg/mL (<125); Troponin I < 0.012 ng/mL (0.01-0.034)
[2024-04-19 11:16] LABS: COVID-19 CEPHEID 4-PLEX PCR Negative (Negative); Influenza A - CEPHEID Flu A NEGATIVE (NEGATIVE); Influenza B - CEPHEID Flu B NEGATIVE (NEGATIVE); Respiratory Syncytial Virus Negative (Negative)
[2024-04-19 11:30] VITALS: BP 132/62; PULSE 77; RESP 17; O2SAT 100
[2024-04-19] MEDS: CYCLOBENZAPRINE 10 MG TABLET PO (11:30)
[2024-04-19] MEDS: KETOROLAC 30 MG/ML VIAL 15 MG IV (11:30)
[2024-04-19 11:49] VITALS: TEMP 37.6
== END 2024-04-19 11:52 | disposition home or self-care (01) ==
PROVIDERS: Emergency Provider Student in an Organized Health Care Education/Training Program; PCP Family Medicine
DX: R07.9 Chest pain, unspecified (principal); M79.18 Myalgia, other site
CPT/HCPCS: 0241U; 36415; 71045; 80053; 82550; 83690; 83735; 83880; 84484; 85025; 85610; 85730; 93005; 96374; 99284; J1885